=== PATIENT | female | born 1995 | race Caucasian/White ===

== ENCOUNTER 2016-12-08 16:13 | Observation (INO) | payer BC, MEDICAID ==
[~2016-12-08 16:13] MED LIST: BACTRIM DS TAB1 EAC2 PO; BIRTH CONTROL; CIPRO500 M1 PO; FOLIC ACID1 M1 PO; IRON325 M1 PO; LEXAPRO10 MG PO; LO/OVRAL-281 TAB PO; MACRODANTIN100 M1 PO; NO MEDICATIONS; NORCO 5/325 TAB1 TAB PO; PERCOCET 5MG/AP1 TA2 PO; PRENATAL1 EACH PO; TRINESSA1 TAB; TUMS500 MG PO; ZOFRAN ODT4 MG PO
[2017-02-16] MEDS ORDERED: PRENA1 CHEW TA1.4 M1 PO (15:34)
[2017-03-06] MEDS ORDERED: SLOW FE142 M1 PO (03:46)
[2017-03-06] MEDS ORDERED: IBUPROFEN800 M1 PO (03:47)
[2017-03-06] MEDS ORDERED: NORCO 5-325 TA1 EACH PO (03:48)
== END 2016-12-08 17:30 ==
LOC: LDR 16:13
PROVIDERS: ADMIT Obstetrics & Gynecology
DX: O36.8120 Decreased fetal movements, second trimester, not applicable or unspecified (principal); Z3A.27 27 weeks gestation of pregnancy